=== PATIENT | female | born 1980 | race Caucasian/White ===

== ENCOUNTER 2020-02-07 13:25 | Inpatient (IN) | payer OTHER ==
[~2020-02-07] VITALS: Ht 144.8 cm; Wt 83.5 kg
--- NOTE | 2020-02-07 15:30 | NUR ---
ICU/RN: RECEIVED REPORT FROM [facility]. SCHEDULED PICKUP AT 1600. AWAITING FOR PT ARRIVAL.
--- NOTE | 2020-02-07 18:59 | NUR ---
ICU/RN: REPORT WILL BE ENDORSED TO NIGHT NURSE. PT HAS NOT ARRIVED AT THIS TIME
--- NOTE | 2020-02-07 19:05 | NUR ---
PRODUCTION LABORER NOTES: PATIENT ARRIVED TO UNIT FROM [facility]. DX: ACUTE APPENDICITIS AND COVID19+. PATIENT IS AAOX4. NO RESPIRATORY DISTRESS. DENIES PAIN AT THIS TIME. PATIENT HAS LEFT AC G20; C/D/I AND FLUSHING WELL. AMBULATORY WITH STEADY GAIT. BOWEL AND BLADDER CONTINENT. NO SKIN ISSUES NOTED PER PATIENT. REFUSED SKIN CHECK. OFFERED 3X BUT STILL REFUSED. ASSESSMENT AND VITAL SIGNS CHECKED. PATIENT NOTED WITH MODERATE AMOUNT OF VAGINAL BLEEDING; HOWEVER, PATIENT DENIES VAGINAL/ADBOMINAL PAIN. CALL LIGHT WITHIN REACH. WILL CONT. TO MONITOR.
[2020-02-07 20:00] VITALS: BP 116/76
[2020-02-07] MEDS ORDERED: HYDROCODONE/APAP 5/325MG TABLET PO PRN (20:30)
[2020-02-07] MEDS ORDERED: MAGNESIUM HYDROXIDE 30 ML UDC PO PRN (20:30)
[2020-02-07] MEDS ORDERED: ZOLPIDEM TARTRATE 5 MG TABLET PO PRN (20:30)
[2020-02-07] MEDS ORDERED: Z GUARD REMEDY 2 OZ OINT TP PRN (20:30)
[2020-02-07] MEDS ORDERED: MAG HYDROX/AL HYDROX/SIMETH 30 ML UDC PO PRN (20:30)
[2020-02-07] MEDS ORDERED: ONDANSETRON HCL/PF 4 MG/2 ML VIAL IVP PRN (20:30)
[2020-02-07] MEDS ORDERED: MORPHINE SULFATE INJ 2 MG/ML DISP.SYRIN IV PRN (20:30)
[2020-02-07] MEDS ORDERED: ACETAMINOPHEN 325 MG TABLET PO PRN (20:30)
--- NOTE | 2020-02-07 21:00 | NUR ---
RN NOTE: DR. SHERMAN AT BEDSIDE. PER MD, PATIENT WILL NOT HAVE SURGERY AND ORDERED TO RESWAB PATIENT FOR COVID19. MD ALSO ORDERED TO PUT PATIENT ON CLEAR LIQUIDS AND ADVANCE DIET IN AM TOLERATED. DR. MARTINO ALSO MADE AWARE.
[2020-02-07 21:48] LABS: BASOPHILS % (AUTO) 0.1 % (0.0-2.0); EOSINOPHILS % (AUTO) 1.8 % (0.0-6.0); HEMATOCRIT 28 % (33-45); HEMOGLOBIN 9.2 g/dL (11.5-14.8); LYMPHOCYTES # (AUTO) 2.2 /CMM (0.8-4.8); LYMPHOCYTES % (AUTO) 29.7 % (20.0-44.0); MEAN CORPUSCULAR HGB CONC 33 g/dl (31.0-36.0); MEAN CORPUSCULAR VOLUME 86 fL (82-100); MONOCYTES # (AUTO) 0.3 /CMM (0.1-1.30); MONOCYTES % (AUTO) 4.3 % (2.0-12.0); NEUTROPHILS # (AUTO) 4.8 /CMM (1.8-8.9); NEUTROPHILS % (AUTO) 64.1 % (43.0-81.0); PLATELET COUNT (AUTO) 271 /CMM (150-450); RED BLOOD CELL COUNT(AUTO) 3.19 MIL/uL (4.0-5.2); WHITE BLOOD COUNT (AUTO) 7.4 K/uL (4.3-11.0)
[2020-02-07 22:10] LABS: ALBUMIN 3.4 g/dL (3.4-5.0); BILIRUBIN,TOTAL 0.3 mg/dL (0.2-1.0); CALCIUM, SERUM 8.2 mg/dL (8.5-10.1); CREATININE 0.7 mg/dL (0.6-1.3); POTASSIUM 3.7 mmol/L (3.5-5.1); TOTAL PROTEIN, SERUM 6.8 g/dL (6.4-8.2)
[2020-02-07] MEDS: IV D5/0.45 NACL 1,000 ML IV PRN (22:32)
--- NOTE | 2020-02-08 01:20 | NUR ---
RN NOTE: STAT CBC AND CMP ORDERED. CALLED PHARMACY AND MADE AWARE TO VERIFY PHARMACY TO DOSE ZOSYN.
[2020-02-08] MEDS ORDERED: ZOSYN IVPB 3.375 G in IV D5W 50ml IV ONE (02:00)
[2020-02-08] MEDS ORDERED: PIPERACILLIN /TAZOBACTAM 3.375 G VIAL IV ONE (02:13)
[2020-02-08] MEDS ORDERED: PROG100C15 PO (02:56)
[2020-02-08] MEDS ORDERED: LEVO100T9 PO (02:56)
[2020-02-08 04:00] VITALS: BP 99/67
[2020-02-08] MEDS: IV D5/0.45 NACL 1,000 ML IV PRN (06:03)
[2020-02-08 07:09] LABS: BASOPHILS % (AUTO) 0.1 % (0.0-2.0); EOSINOPHILS % (AUTO) 2.6 % (0.0-6.0); HEMATOCRIT 26 % (33-45); HEMOGLOBIN 8.4 g/dL (11.5-14.8); LYMPHOCYTES # (AUTO) 1.6 /CMM (0.8-4.8); LYMPHOCYTES % (AUTO) 31.3 % (20.0-44.0); MEAN CORPUSCULAR HGB CONC 33 g/dl (31.0-36.0); MEAN CORPUSCULAR VOLUME 87 fL (82-100); MONOCYTES # (AUTO) 0.3 /CMM (0.1-1.30); MONOCYTES % (AUTO) 6.1 % (2.0-12.0); NEUTROPHILS % (AUTO) 59.9 % (43.0-81.0); PLATELET COUNT (AUTO) 254 /CMM (150-450); RED BLOOD CELL COUNT(AUTO) 2.95 MIL/uL (4.0-5.2); WHITE BLOOD COUNT (AUTO) 5.1 K/uL (4.3-11.0)
--- NOTE | 2020-02-08 07:15 | NUR ---
RN CLOSING NOTES: PATIENT IN STABLE CONDITION. NO ACUTE DISTRESS. OVERNIGHT EVENTS ENDORSED TO AM RN FOR CONTINUITY OF CARE.
[2020-02-08 07:20] LABS: CREATININE 0.7 mg/dL (0.6-1.3); MAGNESIUM 2.4 mg/dL (1.8-2.4); PHOSPHORUS 3.3 mg/dL (2.5-4.9); POTASSIUM 3.5 mmol/L (3.5-5.1)
[2020-02-08] MEDS ORDERED: LEVOTHYROXINE SODIUM 100 MCG TABLET PO SCH (07:30)
[2020-02-08 08:00] VITALS: BP 132/76
[2020-02-08] MEDS: LEVOTHYROXINE SODIUM 100 MCG TABLET PO SCH (08:27)
[2020-02-08] MEDS: PANTOPRAZOLE 40 MG VIAL IV SCH (08:27)
[2020-02-08] MEDS ORDERED: PROGESTERONE MICRONIZED 100 MG PO SCH (09:00)
[2020-02-08] MEDS: PIPERACILLIN /TAZOBACTAM 3.375 G in IV D5W 100 ML IV SCH ×2 (11:09→18:12)
[2020-02-08] MEDS ORDERED: SOD FERRIC GLUC 125 MG in IV NS 0.9% 100 ML IV ONE (15:00)
[2020-02-08 16:00] VITALS: BP 123/80
--- NOTE | 2020-02-08 18:28 | NUR ---
END OF SHIFT NOTE: PT HAD AN UNEVENTFUL SHIFT. COVID RESULTS PENDING. IVF DC'D. DIET ADVANCED TO REGULAR. PT DENIES PAIN OR ABD DISCOMFORT. PT INDEPENDENT IN ROOM. PT CHECKED ON HOURLY AND PRN BY NURSING STAFF.
[2020-02-08 20:00] VITALS: BP 108/72
[2020-02-09] VITALS: BP 110/64
[2020-02-09] MEDS: PIPERACILLIN /TAZOBACTAM 3.375 G in IV D5W 100 ML IV SCH ×2 (02:45→11:28)
[2020-02-09 04:00] VITALS: BP 138/72
--- NOTE | 2020-02-09 06:19 | NUR ---
SPOKE TO DR MARTINO RE COVID PCR RESULT NEGATIVE , PER DR GUNNER POE TO TRANSFER TO CLEAN UNIT
[2020-02-09 06:37] LABS: BASOPHILS % (AUTO) 0.2 % (0.0-2.0); EOSINOPHILS % (AUTO) 2.9 % (0.0-6.0); HEMATOCRIT 27 % (33-45); HEMOGLOBIN 8.8 g/dL (11.5-14.8); LYMPHOCYTES # (AUTO) 1.9 /CMM (0.8-4.8); LYMPHOCYTES % (AUTO) 30.8 % (20.0-44.0); MEAN CORPUSCULAR HGB CONC 33 g/dl (31.0-36.0); MEAN CORPUSCULAR VOLUME 86 fL (82-100); MONOCYTES # (AUTO) 0.3 /CMM (0.1-1.30); MONOCYTES % (AUTO) 5.5 % (2.0-12.0); NEUTROPHILS # (AUTO) 3.7 /CMM (1.8-8.9); NEUTROPHILS % (AUTO) 60.6 % (43.0-81.0); PLATELET COUNT (AUTO) 281 /CMM (150-450); RED BLOOD CELL COUNT(AUTO) 3.08 MIL/uL (4.0-5.2)
[2020-02-09 06:49] LABS: ALBUMIN 2.9 g/dL (3.4-5.0); BILIRUBIN,TOTAL 0.2 mg/dL (0.2-1.0); CALCIUM, SERUM 8.3 mg/dL (8.5-10.1); CREATININE 0.9 mg/dL (0.6-1.3); POTASSIUM 3.7 mmol/L (3.5-5.1); TOTAL PROTEIN, SERUM 6.3 g/dL (6.4-8.2)
--- NOTE | 2020-02-09 07:30 | NUR ---
RN NOTES RECEIVED ASLEEP, AWAKEN BY VERBAL STIMULI. A/OX4. NO SOB NOTED ON ROOM AIR. DENIES ANY PAIN AT THE MOMENT. AMBULATORY. IV ACCESS ON THE LAC G 20, IN PLACE. INTACT. FLUSHING GOOD. ENCOURAGE TO VERBALIZE FEELINGS AND CONCERNS. TO CALL FOR HELP/ ASSISTANCE WHEN NEEDED. SAFETY MEASURES OBSERVED AND MAINTAINED. CALL LIGHT PLACED WITHIN REACH. WILL CONTINUE TO MONITOR PATIENT ACCORDINGLY
[2020-02-09 08:00] VITALS: BP 116/69
[2020-02-09] MEDS: LEVOTHYROXINE SODIUM 100 MCG TABLET PO SCH (08:54)
[2020-02-09] MEDS: PANTOPRAZOLE 40 MG VIAL IV SCH (08:54)
--- NOTE | 2020-02-09 11:05 | NUR ---
RECEIVED PATIENT IN BED. NO ACUTE DISTRESS NOTED. PATIENT ALERT & ORIENTED X4. PATIENT ON ROOM AIR, SATURATING WELL AND BREATHING EVEN AND UNLABORED. PATIENT LEFT ANTECUBITAL IV ACCESS INTACT, PATENT, FLUSHED WELL. PATIENT SAFETY MEASURES MAINTAINED. CALL LIGHT WITHIN REACH. WILL CONTINUE TO MONITOR.
--- NOTE | 2020-02-09 11:15 | NUR ---
RN NOTEES ENDORSED TO MARION MAYA FOR CONTINUITY OF CARE. HANDS OFF
[2020-02-09 12:00] VITALS: BP 112/55
--- NOTE | 2020-02-09 14:39 | NUR ---
PATIENT DISCHARGED IN STABLE CONDITION. NO ACUTE DISTRESS NOTED. IV REMOVED SAFELY. VS- BP 114/55, 98.7 DEGREEES, 75 HEART RATE, 20 RESPIRATION RATE, O2 SATURATION 98%
== END 2020-02-09 14:18 | disposition home or self-care (01) | DRG 393 ==
LOC: TELE1 19:21 → MEDSG1 22:11
PROVIDERS: ADMIT Student in an Organized Health Care Education/Training Program; ATTEND Nurse Practitioner Acute Care
DX: K35.80 Unspecified acute appendicitis (principal); U07.1 COVID-19; E03.9 Hypothyroidism, unspecified; D64.9 Anemia, unspecified; E66.9 Obesity, unspecified; Z68.39 Body mass index [BMI] 39.0-39.9, adult; K59.00 Constipation, unspecified; Z86.19 Personal history of other infectious and parasitic diseases; K80.20 Calculus of gallbladder without cholecystitis without obstruction
CPT/HCPCS: 36415; 80048-TC; 80053-TC; 80061-TC; 83735-TC; 84100-TC; 84702-TC; 85025-TC; 87081-TC; C9113; G0378; J2543; J2916; J3490; J7030; J7060; U0003-CS